=== PATIENT | female | born 1975 | race Caucasian/White ===

== ENCOUNTER → 2017-08-18 10:51 | Outpatient (CLI) | payer OTHER, SELFPAY ==
--- NOTE | 2017-08-18 10:55 | RAD_ITS ---
XR Abdomen 1 View INDICATION: Right flank pain COMPARISON: None TECHNIQUE: Frontal view of the abdomen FINDINGS: Air mixed with fecal material is seen throughout the colon and rectum. No significantly distended air-filled small bowel loops are seen to suggest obstruction. Osseous structures are grossly unremarkable. RAD/Abdomen Single View IMPRESSION: Nonobstructive bowel gas pattern. at 2209 Reported and signed by: Nannette Campuzano MD Electronically Signed: Nannette Campuzano MD at 22:07 EDT Tel , Service support ,
== END ==
PROVIDERS: Family Provider Family Medicine; PCP Family Medicine; Visit Provider Family Medicine
DX: R10.9 Unspecified abdominal pain (principal); M54.9 Dorsalgia, unspecified
CPT/HCPCS: 74018

== ENCOUNTER → 2019-01-20 | Outpatient (CLI) | payer OTHER, SELFPAY ==
[2017-04-13 12:34] VITALS: BMI 32.4
--- NOTE | 2019-01-20 10:45 | RAD_ITS ---
STUDY: X-RAY - LUMBAR SPINE REASON FOR EXAM: Female, 44 years old. Back pain TECHNIQUE: 4 view(s) of the lumbar spine were obtained. COMPARISON: None FINDINGS: Normal lumbar lordosis. There is no substantial scoliosis. There is a normal alignment of the vertebrae. Normal vertebral bodies and endplates. Minimal loss of disc space at L5-S1. There is no demonstrated fracture. There is no demonstrated spondylolysis of the pars interarticulares. The soft tissue structures are unremarkable. RAD/L/S Spine Min 4 Views IMPRESSION: Minor degenerative changes. Electronically Signed: Melvin Weaver MD ([place]) at 17:16 EDT , Service support ,
== END | disposition home or self-care (01) ==
LOC: RAD 10:36
PROVIDERS: Family Provider Family Medicine; PCP Family Medicine; Referring Provider Family Medicine; Visit Provider Family Medicine
DX: M54.5 Low back pain (principal); G89.29 Other chronic pain
CPT/HCPCS: 72100; 72110

== ENCOUNTER 2019-03-01 09:30 | Outpatient (RCR) | payer OTHER, SELFPAY ==
--- NOTE | 2019-02-01 09:33 | HP.PTEVAL_ITS ---
Patient's Visit Information BONITA DENTON is a 44 year old F referred to Physical Therapy by Kishan Mahoney DO with a diagnosis of LOW BACK PAIN. Date of Evaluation: 02/01/19 Physical Therapist: Tg Mercado PT, Cert MDT - Visit Plan Frequency: 2-3x /Week Duration: 4-6 Weeks Plan: AQUATIC THERAPY FOR PAIN RELEIF, POSTURE CORRECTION/STRENGTHENING, INSTRUCTION IN APPROPRIATE BODY MECHANICS AND ACTIVITY MODIFICATIONS. DLS STARTING WITH A NEUTRAL SPINE PROGRESSING ROM TOLERATED. NELIA LE ROM, STRETCHING AND STRENGTHENING. HEP INSTRUCTION. 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 SIT A LOT. Disability: NO. Present symptoms: CONSTANT LOWER RIGHT BACK, WRAPS AROUND HIP AND CUTS ACROSS THE FRONT OF RIGHT THIGH. RIGHT LEG NUMBNESS AND TINGLING AND ACROSS FOOT. LEFT BACK CRAMPING. NO PAIN, NUMBNESS OR TINGLING TRAVELING DOWN THE LEFT LE. Present since: ABOUT A MONTH AGO. Pain Scale: WORST 8/10, LEAST 3/10. Currently: 4/10. Commenced as a result of: NO APPARENT REASON OTHER THAN POOR POSTURE AND STARTED A NEW EX PROGRAM ABOUT 2 MONTHS AGO. Symptoms at onset: SPASMING AND PAIN IN RIGHT LOW BACK AND HIP. Worse: WALKING, RUNNING, PROLONGED SITTING, PROLONGED STANDING, CAR RIDES, LACK OF MVMT, COMPUTER WORK. Better: ICE OR HEAT, IBUPROFEN, MASSAGE, STRETCHING SOMETIMES HELPS, TENS UNIT SOMETIMES HELPS, BIOFREEZE, YOGA. Disturbed sleep: YES. Previous history/Previous treatment: PATIENT REPORTS A HISTORY OF LOW BACK PAIN STARTING ABOUT 20 YEARS AGO. HAS A TENS UNIT. H/O CHIROPRACTIC TREATMENTS FOR ABOUT A YEAR APPROX 10 YEARS AGO - HELPED BUT STOPPED DUE TO FINANCIAL ISSUES. HAS USED MUSCLE RELAXERS. MASSAGE ABOUT A YEAR AGO - HELPFUL. PATIENT DOES HAVE A HISTORY OF RIGHT LE SX'S BUT USUALLY GOES AWAY. NO PAULA'S. NO BACK SURGERY. NO PHYSICAL THERAPY. Coughing/sneezing/straining: BREATHING DOES. Gait: PATIENT REPORTS SHE SOMETIMES LIMPS ON THE RIGHT LE AND SHE AVOIDS WALKING DUE TO THE PAIN DURING FLARE-UPS. Difficulty initiating urinatin: NO. Accidents: CONCUSSION ABOUT 18 MONTHS AGO - RESOLVED. Unexplained weight loss: NO. Imaging: RECENT LUMBAR X-RAY - MINOR DISC DEGENERATION L5S1. PMH: FIBROMYALGIA, MILD DEPRESSION. OTHER: JHOAN'T WITH DR. TATUM PENDING. SURGICAL CONSULT FOR BREAST REDUCTION PENDING. - Objective Sitting/Standing Posture: POOR. Lordosis: NORMAL. Lateral shift: NO. Relevant shift: N/A. Active Correction of posture: NT. Other Observations: INDEP GAIT INTO PT WITH NO GROSS DEVIATIONS NOTED. Motor deficit: NELIA LE'S 5/5 WITH MMT'ING EXCEPT HIPS GRADED 4/5. Sensory deficit: NELIA LE LIGHT TOUCH SENSATION APPEARS INTACT AND SYMMETRICAL. ROM deficit: NELIA LE'S WFL OR EXCESSIVE. Reflexes: 2/3 NELIA LE'S. Dural Signs: POSITIVE LLE (UNINVOLVED SIDE). NEGATIVE RIGHT LE. Lumbar mvmt loss: flex - NIL - EXCESSIVE. ext - LILLIAN - INCREASES LBP. R SG - MOD. L SG - MOD. Core strength: POOR. Palpation: ACUTE TENDERNESS WITH PALPATION OF THE L45S1 REGION. OTHER: PRONE LYING PERIPHERALIZES SX'S TO THE FOOT. - Goals Goal 1:: DECREASE C/O LOW BACK AND RIGHT LE SX'S. Goal Time Frame: 4-6 Weeks Goal 2:: IMPROVE PERSONAL CARE, LIFTING, WALKING, SITTING, STANDING, SLEEP, SOCIAL LIFE, TRAVEL AND HOMEMAKING FUNCTION Goal Time Frame: 4-6 Weeks Goal 3:: INSTRUCT IN PROPHYLAXIS Goal Time Frame: 4-6 Weeks - Rehabilitation Potential Rehabilitation Potential: Fair - Anticipated Interventions Patient/Client Instruction: Educate patient on: Condition, Plan of Care, Risk Factors, Benefits of Fitness Program For the Purpose of:: To improve self management Therapeutic Exercise to Include: Strength training, Body mechanics, Postural training, In an aquatic setting, Dynamic Lumbar Stabilization For the Purpose of:: To decrease pain, To increase ROM, To improve nutrient delivery to tissue, To improve muscle performance and motor function, To increase tolerance to activity/condition/position, To improve ability of physical actions for home/community/work/leisure, To improve gait and locomotor functions Thank you for the opportunity to evaluate your patient. For Medicare and Medicare HMO plans, please review the plan of care and approve it. It will need to be FAXED BACK to us at [phone] for Medicare purposes. For Medicare only, by signing this I certify the plan of care. Please let me know if there are questions or concerns regarding this plan of care. Physician Signature: Date:
--- NOTE | 2019-03-01 10:16 | HP.PTDCSUM ---
HP - PT D/C Summary It has been my pleasure to treat BONITA DENTON under orders from Kishan Mahoney DO, for the diagnosis of LOW BACK PAIN for a total of 7 visit(s). Discharge Date: Please see the following information for a summary of their discharge status. - Subjective Subjective: PATIENT REPORTS SHE IS MUCH BETTER. - Pain Lumbar Spine Pain Intensity (Out of 10): 6 Thoracic Spine Pain Intensity (Out of 10): 0 - Overall Improvement % Improvement: 95 - Objective Objective/Function: ALL GOALS MET AND PATIENT IS INDEP WITH A HEP. LUMBAR ROM WFL ALL PLANES AND NO PAIN REPORTED WITH TESTING. NELIA LE ROM AND STRENGTH WFL. NEGATIVE NELIA LE DURAL SIGNS. PATIENT DEMONSTRATED AND COMMUNICATED A GOOD UNDERSTANDING OF ALL INSTRUCTIONS AFTER GIVEN TODAY. - Goals Goal 1:: DECREASE C/O LOW BACK AND RIGHT LE SX'S. Goal Progress: Goal Met Goal 2:: IMPROVE PERSONAL CARE, LIFTING, WALKING, SITTING, STANDING, SLEEP, SOCIAL LIFE, TRAVEL AND HOMEMAKING FUNCTION Goal Progress: Goal Met Goal 3:: INSTRUCT IN PROPHYLAXIS Goal Progress: Goal Met - Plan Plan: D/C. PATIENT AGREEABLE. - D/C Information If there are questions or concerns regarding this patient's physical therapy, please feel free to call me at [phone]. Thank you for the referral of this patient. Sincerely, Tg Mercado, PT, Cert MDT
== END 2019-03-01 19:00 | disposition home or self-care (01) ==
LOC: PT 09:30
PROVIDERS: Family Provider Family Medicine; PCP Family Medicine; Referring Provider Family Medicine; Visit Provider Family Medicine
DX: M54.16 Radiculopathy, lumbar region (principal); M54.5 Low back pain; G89.29 Other chronic pain
CPT/HCPCS: 97113; 97162; 97530

== ENCOUNTER → 2019-05-05 08:23 | Outpatient (CLI) | payer OTHER, SELFPAY ==
[2019-03-08 08:33] VITALS: BMI 32.9
--- NOTE | 2019-05-05 08:41 | BI_ITS ---
MAMMOGRAPHY - BILATERAL SCREENING REASON FOR EXAM: Female, 44 years old. Routine annual screening examination. PERTINENT HISTORY: Grandmother with breast cancer. TECHNIQUE: Digital bilateral breast shelli (3D mammographic acquisition) in the CC and MLO projections. 2-D mediolateral oblique (MLO) and craniocaudad (CC) views of both breasts were obtained. CAD: Full Field Digital Mammography with Computer Added Detection was performed. COMPARISON: Comparison is made with prior outside examination dated July 17, 2011. FINDINGS: Breast Composition: The breasts are extremely dense, which lowers the sensitivity of mammography. There are no dominant masses or suspicious calcifications. No other significant abnormalities are identified. There has been no significant change since the prior study. BI/SCREEN MAMM (CAD) W/SHELLI BILAT IMPRESSION: Stable bilateral screening mammogram. Yearly follow-up mammogram recommended. (A) ASSESSMENT CATEGORY: BIRADS Category 1: Negative. A letter regarding these results will be sent to the patient by the facility within 30 days. Approximately 10% of breast cancers are not detected by mammography. A normal mammogram should not delay biopsy of a clinically suspicious abnormality. [id number] Electronically Signed: Jonnathan Amaral, at 13:49 EST , Service support ,
== END ==
PROVIDERS: Family Provider Family Medicine; PCP Family Medicine; Referring Provider Nurse Practitioner Family; Visit Provider Nurse Practitioner Family
DX: Z12.31 Encounter for screening mammogram for malignant neoplasm of breast (principal); Z80.3 Family history of malignant neoplasm of breast
CPT/HCPCS: 77063; 77067

== ENCOUNTER 2022-05-15 09:48 | Outpatient (CLI) | payer OTHER, SELFPAY ==
[2022-05-15 12:26] LABS: Absolute Lymphocyte Count 1.39 X10^3/uL (0.83-4.51); Absolute Neutrophil Count 3.9 X10^3/uL (2.0-7.7); Basophil# 0.05 X10^3/uL; Basophil% 0.9 % (0-1); Eosinophil# 0.11 X10^3/uL; Eosinophils% 1.9 % (0-5); Hematocrit 43.4 % (37-47); Hemoglobin 14.4 g/dL (12.0-15.0); Lymphocyte # 1.39 X10^3/ul (0.83-4.51); Lymphocyte % 24.1 % (19-41); Mean Corp Hgb Conc 33.2 g/dL (32-36); Mean Corpuscular Volume 93.3 fL (81-99); Mean Platelet Vol. 9.6 fl (6.2-12.0); Monocyte# 0.29 X10^3/uL; NRBC Flagged by Analyzer 0 % (0-5); Neutrophil # 3.91 X10^3/uL (2.7-7.7); Neutrophil % 67.8 % (47-70); Platelet Count 239 K/mm3 (150-450); RBC Distribution Width CV 11.7 % (11.6-14.6); RBC Distribution Width SD 39.8 fl (35.1-43.9); Red Blood Count 4.65 M/mm3 (4.2-5.4); White Blood Count 5.8 K/mm3 (4.4-11.0)
[2022-05-15 12:29] LABS: Vitamin D,25 Hydroxy 27.7 ng/mL
[2022-05-15 12:34] LABS: ALB/GLOB Ratio 1.1 RATIO (0.9-2.4); AST(SGOT) 16 U/L (15-37); Alanine Aminotransfer ALT/SGPT 20 U/L (13-56); Albumin, Serum 3.5 g/dL (3.2-5.0); Alkaline Phosphatase 40 U/L (45-117); Anion Gap 6 (5-15); BUN 13 mg/dL (7-18); BUN/Creat Ratio 16.5 RATIO (10-20); CRP < 2.90 mg/L (0.0-3.0); Chloride 106 mmol/L (98-107); Cholesterol 220 mg/dL (200); Creatinine, Serum 0.79 mg/dL (0.55-1.02); EST Glomerular Filtration Rate 84 mL/min (>60); Est Glom Filt Rate - Afr Amer 101 mL/min (>60); Globulin 3.3 g/dL (2.2-4.2); Glucose 87 mg/dL (74-106); High Density Lipoprotein 64 mg/dL; Protein, Total 6.8 g/dL (6.4-8.2); Sodium Level 139 mmol/L (136-145); Thyroid Stim Hormone (TSH) 1.63 uIU/mL (0.358-3.74); Triglycerides 96 mg/dL; Very Low Density Lipoprotein 19 mg/dL (5-40)
[2022-05-15 12:37] LABS: Erythrocyte Sedimentation Rate 5 mm/hr (0-30)
[2022-05-18 17:07] LABS: ANTINUCLEAR ANTIBODIES DIRECT Positive (Negative); Anti-Centromere B Ab <0.2 AI (0.0-0.9); Anti-Chromatin <0.2 AI (0.0-0.9); Anti-Jo <0.2 AI (0.0-0.9); Anti-Scleroderma-70 AB <0.2 AI (0.0-0.9); RNP Ab 1.7 AI (0.0-0.9); SJOGREN'S Anti-SS-A test < 0.2 AI (0.0-0.9); SJOGREN'S Anti-SS-B test < 0.2 AI (0.0-0.9); Smith Ab <0.2 AI (0.0-0.9)
[2022-05-18 20:54] LABS: Anti-dsDNA Ab 1 IU/mL (0-9)
== END 2022-05-15 23:59 | disposition home or self-care (01) ==
PROVIDERS: PCP Family Medicine; Visit Provider Family Medicine
DX: Z00.00 Encounter for general adult medical examination without abnormal findings (principal); M79.10 Myalgia, unspecified site; R53.83 Other fatigue; E55.9 Vitamin D deficiency, unspecified
CPT/HCPCS: 36415; 80053; 80061; 82306; 84443; 85025; 85652; 86038; 86140; 86225; 86235

== ENCOUNTER 2022-10-01 08:23 | Day surgery (SDC) | payer OTHER, SELFPAY ==
[2022-10-01] VITALS (7 sets, daily range): BP systolic 92–128; BP diastolic 64–87; PULSE 68–94; RESP 14–18; TEMP 36.3–37.1; O2SAT 96–100; BMI 30.7
[2022-10-01] MEDS: Lactated Ringers 1,000 ML 15 ML IV (08:52)
[2022-10-01 08:53] LABS: Internal QC Validated? YES +Cl - CLEAR BKGD; Pregnancy, Urine Negative Negative
--- NOTE | 2022-10-01 09:08 | PCM.HP.STD ---
[facility] - General General Date of Admission: 10/01/22 Date of Service: 10/01/22 Chief Complaint: Screening colonoscopy [facility] Narrative BONITA DENTON, is a 47 F who presents today for screening colonoscopy. She has a past medical history of radiculopathy and somatic dysfunction of lumbar spine. She does not have any personal history of adenomatous polyps. She did have a colonoscopy. She denies any chest pain or shortness of breath. Overall she is in very good health. [facility] Medical History (Updated 09/30/22 @ 10:46 by Louann Mims) Alcohol use Allergies Anemia Anxiety Anxiety and depression Back problem Breast lump in female Depression Fibromyalgia Former smoker Gout History of steroid therapy Injury of head and neck Kidney stones Restless legs Wears glasses Home Medications [id number]-lthpm-lrtc-boron 600 mg-200 unit-40 mg-7.5 mg tablet 1 tab PO DAILY 03/08/19 [History Last Taken Unknown] fluticasone propionate 50 mcg/actuation nasal spray,suspension 1 spray intranasal DAILY 03/08/19 [History Last Taken Unknown] doxycycline hyclate 100 mg capsule 100 mg PO DAILY 07/21/22 [History Last Taken Unknown] ropinirole 0.5 mg tablet 1 mg PO QHS 07/21/22 [History Last Taken Unknown] spironolactone 100 mg tablet 100 mg PO QAM 07/21/22 [History Last Taken Unknown] venlafaxine 150 mg capsule,extended release 24 hr (Effexor XR) 150 mg PO DAILY 08/04/22 [History Last Taken Unknown] metronidazole 0.75 % topical cream 1 applic topical DAILY 09/30/22 [History Last Taken Unknown] prednisone 20 mg tablet 20 mg PO BID 09/30/22 [History Last Taken Unknown] Allergy/AdvReac Type Severity Reaction Status Date / Time No Known Allergies Allergy Verified 10/01/22 08:43 Family History Father Emotional depression Anxiety History of psychiatric care Mother Diabetes High cholesterol Sister History of psychiatric care Grandmother Breast cancer Grandmother Breast cancer Other Hypertension Thyroid disorder Surgical History (Updated 09/30/22 @ 10:46 by Louann Mims) History of oral surgery Hx of breast reduction, elective Social History Smoking Status: Former smoker alcohol intake: current alcohol intake frequency: holidays/special occasions only details: 2-4 DRINKS PER MONTH substance use type: does not use what type of physical activity do you participate in: running and yoga additional social history: DOES NOT USE ASPIRIN DOES USE IBUPROFEN NEEDED ROS Review of Systems ROS Unobtainable: other Constitutional Constitutional: Denies fatigue, fever(s), poor appetite, weight gain or weight loss ENT HEENT: Denies mouth lesions Cardiovascular Cardiovascular: Denies abdominal bloating, abdominal edema or abdominal pain Respiratory/Chest Respiratory/Chest: Denies change in mental status, change in phlegm color, chest congestion or chest tightness Gastrointestinal Gastrointestinal: Denies belching, bloating, change in bowel habits, change in stool character, chewing difficulty, coffee ground emesis, constipation, cramping, diarrhea, dyspepsia, dysphagia, early satiety, excessive flatus, fecal incontinence, heartburn, hematemesis, hematochezia, hemorrhoids, loose stools, melena, nausea, odynophagia, rectal bleeding, tenesmus, vomiting or weight changes Genitourinary Genitourinary: Denies abdominal discomfort, burning urination or itching Musculoskeletal Musculoskeletal: Reports as per HPI; Denies muscle weakness or myalgias Integumentary Integumentary: Denies jaundice Neurologic Neurologic: Denies lack of coordination or weakness Psychiatric Psychiatric: Denies confusion, depression, memory loss, mood swings, paranoia or suicidal ideation Endocrine Endocrinology: Denies systems reviewed and no addt'l complaints, except as documented Hematologic/Lymphatic Hematologic/Lymphatic: Denies anemia, easy bleeding, easy bruising or lymphadenopathy Allergic/Immunologic Allergic/Immunologic: Denies systems reviewed and no addt'l complaints, except as documented Vital Signs Vital Signs Vital Signs: 10/01/22 08:48 10/01/22 08:48 Temperature 98.3 F Temperature Source Temporal Pulse Rate 94 Respiratory Rate 16 Respiratory Pattern Normal Blood Pressure 122/82 H Blood Pressure Mean 95 Blood Pressure Source Monitor Blood Pressure Position Sitting Blood Pressure Location Left Arm Pulse Ox 99 Oxygen Delivery Method Room Air Weight Weight: 196 lb 3.382 oz Body Mass Index (BMI) 30.7 Physical Exam Const alert General Appearance: cooperative Orientation / Consciousness: oriented to person HEENT hearing grossly normal bilaterally Head and Scalp: normal to inspection Face and Sinus: face symmetric Nose: external nose normal Mouth: oral and palatal mucosa normal Eyes conjunctivae normal General Eye: normal appearance of both eyes Neck full ROM General: normal visual inspection Lymph Lymphatic: no lymphadenopathy noted Chest inspection of chest normal and palpation of chest normal Chest: symmetrical chest wall rise Resp normal respiratory effort Effort and Inspection: able to speak in complete sentences Cardio regular rate GI non-distended Percussion: normal to percussion Rectal Exam: deferred Neuro Speech: speech normal Gait (Neuro): normal gait Results Lab / Micro Data Labs: Laboratory Results - last 24 hr 10/01/22 08:35: Urine Test Negative Assessment & Plan Assessment/Plan (1) Encounter for screening for malignant neoplasm of colon: PLAN: She was explained alternatives, risk, benefits including not withstanding bleeding, infection, sepsis, perforation, need for emergent urgent . She have an ASA of 2.
--- NOTE | 2022-10-01 10:04 | OP.COLON_ITS ---
Patient Name: Chapis Jensen Procedure Date: 10/01/2022 9:39 AM Date of : 1975 Age: 47 Procedure: Colonoscopy Indications: Screening for colorectal malignant neoplasm Providers: Vinny Hillman DO Medicines: Monitored Anesthesia Care Patient Profile: This is a 47 year old female. Refer to note in patient chart for documentation of history and physical. Last Colonoscopy: none. The patient's first colonoscopy is today. Complications: No immediate complications. Procedure: Pre-Anesthesia Assessment: - Prior to the procedure, a History and Physical was performed, and patient medications and allergies were reviewed. The patient is competent. The risks and benefits of the procedure and the sedation options and risks were discussed with the patient. All questions were answered and informed consent was obtained. Patient identification and proposed procedure were verified by the physician in the pre-procedure area. Mental Status Examination: alert and oriented. Airway Examination: normal oropharyngeal airway and neck mobility. Respiratory Examination: clear to auscultation. CV Examination: normal. Prophylactic Antibiotics: The patient does not require prophylactic antibiotics. Prior Anticoagulants: The patient has taken no previous anticoagulant or antiplatelet agents. ASA Grade Assessment: II - A patient with mild systemic disease. After reviewing the risks and benefits, the patient was deemed in satisfactory condition to undergo the procedure. The anesthesia plan was to use monitored anesthesia care (MAC). Immediately prior to administration of medications, the patient was re-assessed for adequacy to receive sedatives. The heart rate, respiratory rate, oxygen saturations, blood pressure, adequacy of pulmonary ventilation, and response to care were monitored throughout the procedure. The physical status of the patient was re-assessed after the procedure. After I obtained informed consent, the scope was passed under direct vision. Throughout the procedure, the patient's blood pressure, pulse, and oxygen saturations were monitored continuously. The was introduced through the anus and advanced to the terminal ileum. The colonoscopy was performed without difficulty. The patient tolerated the procedure well. The quality of the bowel preparation was adequate. Moderate Sedation: Moderate (conscious) sedation was personally administered by an anesthesia professional. The following parameters were monitored: oxygen saturation, heart rate, blood pressure, respiratory rate, EKG, adequacy of pulmonary ventilation, and response to care. Scope In: 9:49:32 AM Scope Withdrawal Time 0 hours 5 minutes 58 seconds Scope Out: 9:59:31 AM Total Procedure Duration Time 0 hours 9 minutes 59 seconds Findings: The perianal and digital rectal examinations were normal. The colon (entire examined portion) appeared normal. Impression: - The entire examined colon is normal. - No specimens collected. Recommendation: - Discharge patient to home. - Resume previous diet. - Continue present medications. - Repeat colonoscopy in 10 years for screening purposes. Procedure Code(s): --- Professional --- G0121, Colorectal cancer screening; colonoscopy on individual not meeting criteria for high risk CPT copyright 2017 [employer]. All rights reserved. The codes documented in this report are preliminary and upon crm analyst review may be revised to meet current compliance requirements. Vinny Hillman DO 10/01/2022 10:04:05 AM This report has been signed electronically. Number of Addenda: 0 Note Initiated On: 10/01/2022 9:39 AM
--- NOTE | 2022-10-01 10:05 | OP.CCLET_ITS ---
10/01/2022 Kishan Mahoney [address] [place] [address] Re : Colonoscopy procedure for Chapis Jensen Dear Dr. Mahoney This procedure was performed on September. My impressions and recommendations are as follows: Impressions : - The entire examined colon is normal. - No specimens collected. Recommendations : - Discharge patient to home. - Resume previous diet. - Continue present medications. - Repeat colonoscopy in 10 years for screening purposes. My findings are described in the full procedure note, which is enclosed. If I can be of further assistance, please feel free to contact me at . Sincerely, Vinny Hillman, 10/01/2022 10:04:05 AM This report has been signed electronically.
== END 2022-10-01 11:00 | disposition home or self-care (01) ==
LOC: EN 08:24 → AC 08:26
PROVIDERS: Anesthesiology; PCP Family Medicine; Referring Provider Family Medicine; Visit Provider Internal Medicine Gastroenterology
PROC: 0DJD8ZZ Inspection of Lower Intestinal Tract, Via Natural or Artificial Opening Endoscopic (ICD-10-PCS; CPT 45378; principal; 2022-10-01 09:25)
DX: Z12.11 Encounter for screening for malignant neoplasm of colon (principal); G89.29 Other chronic pain; M54.6 Pain in thoracic spine; M54.17 Radiculopathy, lumbosacral region; M99.01 Segmental and somatic dysfunction of cervical region; M99.02 Segmental and somatic dysfunction of thoracic region; M99.03 Segmental and somatic dysfunction of lumbar region; F41.9 Anxiety disorder, unspecified; F32.A Depression, unspecified; M10.9 Gout, unspecified; Z79.899 Other long term (current) drug therapy; Z87.891 Personal history of nicotine dependence
CPT/HCPCS: 45378; 81025; J7120; J2405

== ENCOUNTER → 2025-03-29 | Outpatient (CLI) | payer OTHER, SELFPAY ==
--- NOTE | 2025-03-29 07:24 | BI_ITS ---
EXAM: SCRN MAMM (CAD)W/SHELLI BILAT DATE: 03/29/2025 CLINICAL HISTORY: F, Age 50 y/o , SCREENING Maternal grandmother with breast cancer. Prior bilateral breast reduction surgery. TECHNIQUE: Procedure Code: [id number] Modality: MG Procedure: SCRN MAMM (CAD)W/SHELLI BILAT COMPARISON: Prior exam(s) dated May 05, 2019.. FINDINGS: TISSUE DENSITY: The breasts are extremely dense, which lowers the sensitivity of mammography. Bilateral Breast Mammographic Findings: No significant masses, calcifications or other abnormalities are identified. Small benign-appearing axillary lymph nodes. No suspicious masses, areas of developing architectural distortion, or suspicious calcifications. There has been no significant interval change. BI/SCRN MAMM (CAD)W/SHELLI BILAT IMPRESSION: Stable bilateral screening mammogram. OVERALL FINAL ASSESSMENT BI-RADS 2: BENIGN RECOMMENDATION: Routine annual follow-up in 1 Year Additional Recommendation none A letter with findings and recommendations will be mailed to the patient. Reading Location: [place] [id number]
--- OUTSIDE RECORDS SUMMARY | 2025-03-29 07:29 | XMS RPT_ITS | CCD ---
Author Organization [facility] Team Providers Care Carpet Repairer Name Role Phone Zena Mahoney DO Primary Care Provider Dr. Zena Mahoney Primary Care Provider [phone] Faustina Beltre Attending Provider Unavailable Dr. Zena Mahoney Referring Provider Dr. Jaymie Portillo Attending Provider [phone] Friend, Dr. Casillas Attending Provider Friend, Dr. Casillas Other Provider ZENA MAHONEY Primary Care Unavailable Zena Mahoney DO Primary Care Provider Zena Mahoney Referring Unavailable Zena Mahoney Attending Unavailable Zena Mahoney Primary Care Unavailable Medications Current Medications Medication Drug Class(es) Dates Sig (Normalized) Sig (Original) amoxicillin 875 mg / clavulanate 125 mg oral tablet (2 sources) Penicillin-class Antibacterial Start: 01-31-2024 End: 02-07-2024 take 1 tablet by mouth twice daily amoxicillin-clavulan ate potassium (AUGMENTIN) 875-125 mg per tablet Indications: Sinobronchitis Take 1 tablet by mouth two times a day for 7 days. 14 tablet 01/31/2024 02/07/2024 Active Start: 11-04-2021 End: 11-11-2021 take 1 tablet by mouth twice daily amoxicillin-clavulanic acid (AUGMENTIN) 875-125 mg per tablet Take 1 tablet by mouth twice daily for 7 days. 14 tablet 0 11/04/2021 11/11/2021 Active Comment on above: Take 1 tablet by luis twice daily for 7 days. bisacodyl 10 mg rectal suppository (2 sources) Stimulant Laxative Start: 0 bisacodyl (DULCOLAX, BISACODYL,) 10 mg supp 1 Suppository by RECTAL route once daily as needed. 5 Suppository 02/27/2020 Active Comment on above: 1 Suppository by REC OSCAR route once daily as needed. watalld-H5-mah-Zn-coppersmith apprentice qm-nycv-zffsa 600 mg-200 unit-40 mg-7.5 mg tablet (3 sources) Start: 9 take 1 tablet by mouth once daily fxildix-M1-yhv-Zn-co sla-havg-tufxp 600 mg-200 unit-40 mg-7.5 mg tablet Active 1 TABLET PO DAILY March 08, 2019 1:00am Start: 03-08-2019 wywaopr-H4-qtn -Rm-hpyrc-ypfj-boron 600 mg-200 unit-40 mg-7.5 mg tablet Active TABLET PO March 08, 2019 12:00am Start: 03-08-2019 sjzkbix-U8-flq -Ap-bjdkw-qqej-boron 600 mg-200 unit-40 mg-7.5 mg tablet Active TABLET PO March 08, 2019 1:00am doxycycline hyclate 100 mg oral capsule (3 sources) Tetracycline-class Drug Start: 07-21-2022 take 100 mg by mouth once daily Doxycycline Hyclate Active 100 MG PO DAILY July 21, 2022 12:00am Start: 01-04-2020 [facility] Active fluticasone propionate 0.05 mg/actuat metered dose nasal spray (5 sources) Corticosteroid Start: 03-08-2019 Fluticasone Pr opionate Active 1 SPRAY INTRANASAL DAILY March 08, 2019 1:00am Start: 03-01-2019 take 2 spray(s) by m outh once daily fluticasone (FLONASE) 50 mcg/actuation nasal spray Indications: Bacterial sinusitis Use 2 Sprays in each nostril once daily. Rinse mouth after use. 1 Bottle 03/01/2019 Active Comment on above: Use 2 Sprays in each nostril once daily. Rinse mouth after use. ibuprofen 200 mg oral capsule (2 sources) Nonsteroidal Anti-inflammatory Drug Ibuprofen 200 mg cap Take 4 capsules by mouth. Active Comment on above: Take 4 capsules by m outh. loratadine 10 mg oral tablet (4 sources) Start: 2018 take 1 tablet by mouth once daily loratadine (CLARITIN) 10 mg tablet Indications: Bacterial sinusitis Take 1 tablet by mouth once daily. 30 tablet 03/01/2019 Active Comment on above: Take 1 tablet by luis th once daily. 1 ml medroxyPROGESTERone acetate 150 mg/ml prefilled syringe (3 sources) Progestin Start: 2016 medroxyPROGESTERone (DEPO-PROVERA) 150 mg/mL 150 mg. 04/13/2017 Active Start: 04-13-2017 inject 150 mg by int ramuscular injection every three months Medroxyprogesterone Active 150 MG IM .[id number] April 13, 2017 12:00am metroNIDAZOLE 7.5 mg/ml topical cream (1 source) Nitroimidazole Antimicrobial Start: 09-30-2022 Metronidazole Active 1 APPLIC TOPICAL DAILY September 30, 2022 12:00am Multivitamin preparation (2 sources) Start: 01-15-2017 Multivitamin A ctive 1 EACH PO DAILY January 14, 2017 11:00pm Start: 01-15-2017 Multivitamin A ctive 1 EACH PO DAILY January 15, 2017 12:00am multivitamin tablet (2 sources) take 1 tablet by luis th once daily multivitamin tablet Take 1 tablet by mouth once daily. Active take 1 tablet by mouth once olman y multivitamin tablet Take 1 tablet by mouth once daily. 0 Active Comment on above: Take 1 tablet by luis th once daily. ondansetron 4 mg disintegrating oral tablet (2 sources) Serotonin-3 Receptor Antagonist Start: 04-13-20 take 4 mg by mouth every eight hours as needed Ondansetron Active 4 MG PO EVERY 8 HOURS NEEDED April 13, 2017 2:38pm predniSONE 20 mg oral tablet (2 sources) Start: 01-31-20 End: 02-05-20 take 2 tablets by mouth once daily predniSONE (DELTASONE) 20 mg tablet Indications: Sinobronchitis Take 2 tablets by mouth once daily for 5 days. 10 tablet 01/31/2024 02/05/2024 Active Start: 09-30-2022 take 20 mg by mouth twice olman y Prednisone Active 20 MG PO TWICE A DAY September 30, 2022 12:00am rOPINIRole 0.5 mg oral tablet (1 source) Nonergot Dopamine Agonist Start: 07-21-2022 take 1 mg by mouth at bedtime Ropinirole Active 1 MG PO AT BEDTIME July 21, 2022 12:00am administer 1-3 hours before bedtime spironolactone 100 mg oral tablet (2 sources) Aldosterone Antagonist Start: 01-05-2024 take 1 tablet by mouth once daily spironolactone (ALDACTONE) 100 mg tablet Take 1 tablet by mouth once daily (at the same time each day) with a full glass of water. 01/05/2024 Active Start: 07-21-2022 take 100 mg by mouth once daily in the morning Spironolactone Active 100 MG PO EVERY MORNING July 21, 2022 12:00am TESTOSTERONE AND ESTRADIOL C YP (DEPO-TESTADIOL INTRAMUSC.) (2 sources) TESTOSTERONE AND ESTRADIOL CYP (DEPO-TESTADIOL INTRAMUSC.) Inject intramuscularly. Active TESTOSTERONE AND ESTRADIOL CYP (DEPO-TESTADIOL INTRAMUSC.) Inject intramuscularly. 0 Active Comment on above: Inject intramuscular ly. 24 hr venlafaxine 150 mg extended release oral capsule (6 sources) Serotonin and Norepinephrine Reuptake Inhibitor Start: 08-05-19 take 1 capsule by mouth once daily Venlafaxine (Effexor Xr) 150 mg capsule,extended release 24hr Active 150 MG PO DAILY August 04, 2022 12:00am Start: 01-15-2017 End: 08-04-2022 take 75 mg by mouth once daily Venlafaxine Discontinue d 75 MG PO DAILY January 15, 2017 12:00am August 04, 2022 8:50am VENLAFAXINE HCL (EFFEXOR XR ORAL) Take by mouth. Active VENLAFAXINE HCL (EFFEXOR XR ORAL) Take by mouth. 0 Active Comment on above: Take by mouth. Problems Active Problems Problem Classification Problem Date Documented Da te Episodic/Chronic Anxiety disorders (2 sources) Mixed anxiety and depressive disorder; Translations: [Anxiety disorder, unspecified] Onset: 02-20-2020 02-20-2020 Chronic Nonmalignant breast conditions (3 sources) Large breast; Translations: [Hypertrophy of breast] 03-08-2019 Episodic Other bone disease and musculoskeletal deformities (9 sources) Segmental and somatic dysfunction; Translations: [Segmental and somatic dysfunction of cervical region] 02-09-2019 Episodic Other bone disease and musculoskeletal deformities (2 sources) Segmental and somatic dysfunction of cervical region; Translations: [Nonallopathic lesions, cervical region] 08-04-2022 Episodic Other bone disease and musculoskeletal deformities (2 sources) Segmental and somatic dysfunction of lumbar region; Translations: [Nonallopathic lesions, lumbar region] 08-04-2022 Episodic Other bone disease and musculoskeletal deformities (2 sources) Segmental and somatic dysfunction of thoracic region; Translations: [Nonallopathic lesions, thoracic region] 08-04-2022 Episodic Other inflammatory condition of skin (3 sources) Intertrigo; Translations: [Erythema intertrigo] 03-08-2019 Episodic Other non-traumatic joint disorders (3 sources) Shoulder pain; Translations: [Pain in unspecified shoulder] 03-08-2019 Episodic Other nutritional; endocrine; and metabolic disorders (1 source) Obesity; Translations: [Other obesity due to excess calories] Onset: 02-20-2020 02-20-2020 Chronic Other nutritional; endocrine; and metabolic disorders (1 source) Obesity caused by energy imbalance; Translations: [Class 1 obesity due to excess calories without serious comorbidity with body mass index (BMI) of 31.0 to 31.9 in adult] Onset: 02-20-2020 02-20-2020 Chronic Other screening for suspected conditions (not mental disorders or infectious disease) (3 sources) Patient encounter status; Translations: [Encounter for screening for malignant neoplasm of colon] Onset: 02-27-2025 07-21-2022 Episodic Other upper respiratory infections (2 sources) Bacterial sinusitis; Translations: [Chronic sinusitis, unspecified] Chronic Other upper respiratory infections (1 source) Sore throat symptom; Translations: [Acute pharyngitis, unspecified] 01-31-2024 Episodic Residual codes; unclassified (3 sources) Family history of breast cancer; Translations: [Family history of malignant neoplasm of breast] 03-08-2019 Episodic Spondylosis; intervertebral disc disorders; other back problems (11 sources) Chronic thoracic back pain; Translations: [Pain in thoracic spine] 03-08-2019 Episodic Past or Other Problems Problem Classification Problem Date Documented Date Episodic/Chronic Allergic reactions (2 sources) Environmental allergy; Translations: [Other allergy status, other than to drugs and biological substances] Onset: 02-20-2020 02-20-2020 Episodic Results Test Name Value Interpretation Reference Range Facility [facility] 01-31-2024 CNOV Office Visit (UCWSTR) ---- BONITA JENSEN ([id number]) 1975 F Date Time Provider Department 01/31/24 4:00 PM ANTHONY BELTRE [facility] During your visit today, we recorded the following information about you: Temperature Pulse Respiration Blood pressure 97.8 degrees 92/minute 16/minute 144/88 Weight 95 kg Anthony Beltre APRN.MANAGER LABORATORY 01/31/2024 4:23 PM Signed Subjective HPI HPI Bonita Jensen is a 49 year old female who presents today for CC of st. This started st, sinus pressure, ear pain. Has tried 3 days ago. Symptoms are worsened by otc medication for relief. Risk factors sick exposures at home. Nonsmoker. .Patient presents with: Head Congestion: right side ear, tonsil and throat pain x 3 days No past medical history on file. No past surgical history on file. ALLERGIES Patient has no known allergies. MEDICATIONS medroxyPROGESTERone (DEPO-PROVERA) 150 mg/mL 150 mg. spironolactone (ALDACTONE) 100 mg tablet Take 1 tablet by mouth once daily (at the same time each day) with a full glass of water. bisacodyl (DULCOLAX, BISACODYL,) 10 mg supp 1 Suppository by RECTAL route once daily as needed. Ibuprofen 200 mg cap Take 4 capsules by mouth. fluticasone (FLONASE) 50 mcg/actuation nasal spray Use 2 Sprays in each nostril once daily. Rinse mouth after use. VENLAFAXINE HCL (EFFEXOR XR ORAL) Take by mouth. multivitamin tablet Take 1 tablet by mouth once daily. doxycycline hyclate 50 mg TbEC (Patient not taking: Reported on 01/31/2024) loratadine (CLARITIN) 10 mg tablet Take 1 tablet by mouth once daily. (Patient not taking: Reported on 01/31/2024) TESTOSTERONE AND ESTRADIOL CYP (DEPO-TESTADIOL INTRAMUSC.) Inject intramuscularly. (Patient not taking: Reported on 11/04/2021 ) FAMILY HISTORY Problem Relation Age of Onset Psychiatry Father Arthritis Father Diabetes Mother Arrythmias Mother Social History Tobacco Use Smoking status: Never Smokeless tobacco: Never Substance Use Topics Alcohol use: Yes Alcohol/week: 2.0 standard drinks of alcohol Types: 2 Glasses of Wine (5oz) per week Drug use: Never Review of Systems Constitutional: Negative for fever. HENT: Positive for congestion, ear pain and sore throat. Negative for nosebleeds. Respiratory: Positive for cough. Negative for shortness of breath and wheezing. Musculoskeletal: Negative for neck pain. Skin: Negative for itching and rash. Objective Blood pressure 144/88, pulse 92, temperature 36.6 ?C (97.8 ?F), resp. rate 16, weight 95 kg (209 lb 7 oz), SpO2 99%. Physical Exam Constitutional: General: She is not in acute distress. Appearance: She is not toxic-appearing or diaphoretic. HENT: Head: Normocephalic and atraumatic. Right Ear: Hearing, tympanic membrane, ear canal and external ear normal. Left Ear: Hearing, tympanic membrane, ear canal and external ear normal. Nose: Nose normal. Mouth/Throat: Lips: [place]. Mouth: Mucous membranes are moist. Pharynx: Uvula midline. Posterior oropharyngeal erythema present. No pharyngeal swelling, oropharyngeal exudate or uvula swelling. Eyes: General: Lids are normal. No scleral icterus. Right eye: No discharge. Left eye: No discharge. Conjunctiva/sclera: Conjunctivae normal. Pupils: Pupils are equal, round, and reactive to light. Neck: Trachea: Trachea normal. Cardiovascular: Rate and Rhythm: Normal rate and regular rhythm. Heart sounds: Normal heart sounds. Pulmonary: Effort: Pulmonary effort is normal. Breath sounds: Normal breath sounds. Musculoskeletal: Cervical back: Normal range of motion and neck supple. Lymphadenopathy: Cervical: No cervical adenopathy. Right cervical: No superficial cervical adenopathy. Left cervical: No superficial cervical adenopathy. Skin: Findings: No rash. Neurological: Mental Status: She is alert and oriented to person, place, and time. ASSESSMENT/PLAN: 1. Sinobronchitis - ICD9: 473.9, 490, ICD10: J32.9, J40 (primary diagnosis) Start prednisone today, hold atb. If s/s persist or worsen fill and take atb - Supportive care with plenty of fluids, rest, and analgesia prn. - Follow up in 3-5 days if symptoms persist or worsen. - AMOXICILLIN 875 MG-POTASSIUM CLAVULANATE 125 MG TABLET - PREDNISONE 20 MG TABLET 2. Sore throat - ICD9: 462, ICD10: J02.9 Negative, viral - STREP A MOLECULAR (POC) Anthony Beltre APRN.MANAGER LABORATORY Allergies As of Date: 01/31/2024 (No Known Allergies) Date Reviewed: 01/31/2024 Reviewed by: Lashay Barney MA - Fully Assessed Reason for Visit: Head Congestion [234] Cmt: right side ear, tonsil and throat pain x 3 days Primary Visit Diagnosis:Sinobronc hitis [J32.9, J40] Other Visit Diagnosis:Sore throat [J02.9] Order(s):STREP A MOLECULAR (POC) [0025212] Order #: [id number]. #:[id number] amoxicillin-clavula mireille potassium (AUGMENTIN) 875-125 mg per tabletT (more content not included)... Normal [facility] STREP A MOLECULAR (POC)on Procedural Control Valid [facility] Strep A (POCT) Negative Negative [facility] - Chemistry and C hemistry - challengeOrdered By: Dr. Elizabeth on 10-01-2022 HCG ( test) Ql (U) Negative [facility] Comment on above: Very dilute urine sp ecimens, as indicated by a low specificgravity, may not contain technical sales representatives levels of hCG. If is still suspected, a first morning urinespecimen should be collected 48 hours later and tested. Absolute lymphocyte countOrd ered By: Dr. Mahoney on 05-15-2022 Lymphocytes Auto (Unsp spec) [#/Vol] 1.39 10*3/uL 0.83-4.51 [facility] Basophil percentageOrdered B y: Dr. Mahoney on 05-15-2022 Basophil percentage < 0.2 AI 0.0-0.9 [facility] Basophils/100 WBC (Bld) 0.9 % 0-1 [facility] Bilirubin [Mass/Vol] 0.50 mg/dL 0.20-1.00 [facility] Comment on above: For patients on eltr ombopag therapy, use of Dimension [place] TBIL is not recommended. Chloride [Moles/Vol] 106 mmol/L 98-107 [facility] Cholesterol [Mass/Vol] 220 mg/dL <200 [facility] Comment on above: <200 mg/dL Desirable 200-240 mg/dL Borderline >240 mg/dL High Risk Eosinophils/100 WBC (Bld) 1.9 % 0-5 [facility] Glucose [Mass/Vol] 87 mg/dL 74-106 [facility] Neutrophils (Bld) [#/Vol] 3.9 10*3/uL 2.0-7.7 [facility] Neutrophils/100 WBC (Bld) 67.8 % 47-70 [facility] Potassium [Moles/Vol] 4.0 mmol/L 3.5-5.1 [facility] Protein [Mass/Vol] 6.8 g/dL 6.4-8.2 [facility] Sodium [Moles/Vol] 139 mmol/L 136-145 [facility] Triglyceride [Mass/Vol] 96 mg/dL <199 [facility] Comment on above: The drugs N-Acetylcy steine and Metamizole may falsely depress this assay.Serum Triglycerides Reference Interval Normal <150 mg/dL Borderline high 150 - 199 mg/dL High 200 - 499 mg/dL Very High > or = 500 mg/dL WBC (Bld) [#/Vol] 5.8 10*3/uL 4.4-11.0 [facility] Blood erythrocytes count (nu mber/volume)Ordered By: Dr. Mahoney on 05-15-2022 RBC (Bld) [#/Vol] 4.65 10*6/uL 4.2-5.4 [facility] Blood hemoglobin measurement (mass/volume)Ordered By: Dr. Mahoney on 05-15-2022 Hemoglobin (Bld) [Mass/Vol] 14.4 g/dL 12.0-15.0 [facility] Blood lymphocytes/100 leukoc ytesOrdered By: Dr. Mahoney on 05-15-2022 Lymphocytes/100 WBC (Bld) 24.1 % 19-41 [facility] Blood monocytes/100 leukocyt esOrdered By: Dr. Mahoney on 05-15-2022 Monocytes/100 WBC (Bld) 5.0 % 0-10 [facility] Blood platelet mean volumeOr dered By: Dr. Mahoney on 05-15-2022 Platelet mean volume (Bld) [Entitic vol] 9.6 fL 6.2-12.0 [facility] Determination of erythrocyte mean corpuscular volume (MCV)Ordered By: Dr. Mahoney on 05-15-2022 MCV (RBC) [Entitic vol] 93.3 fL 81-99 [facility] Erythrocyte sedimentation ra teOrdered By: Dr. Mahoney on 05-15-2022 ESR (Bld) [Velocity] 5 mm/h 0-30 [facility] Hematocrit Auto (Bld) [Volum e fraction]Ordered By: Dr. Mahoney on 05-15-2022 Hematocrit (Bld) [Volume fraction] 43.4 % 37-47 [facility] - Chemistry and C hemistry - challengeOrdered By: Dr. Mahoney on 05-15-2022 ALP [Catalytic activity/Vol] 40 U/L 45-117 [facility] ALT [Catalytic activity/Vol] 20 U/L 13-56 [facility] CO2 [Moles/Vol] 27.0 mmol/L 21.0-32.0 [facility] Globulin (S) [Mass/Vol] 3.3 g/dL 2.2-4.2 [facility] Urea nitrogen/Creatinine [Mass ratio] 16.5 mg/mg 10-20 [facility] - Hematology and Cell countsOrdered By: Dr. Mahoney on 05-15-2022 Erythrocyte distribution width (RBC) [Entitic vol] 39.8 fL 35.1-43.9 [facility] Erythrocyte distribution width (RBC) [Ratio] 11.7 % 11.6-14.6 [facility] Immature granulocytes/100 WBC (Bld) 0.300 % 0.0-0.9 [facility] Comment on above: IG% - Immature Granu locytes (promyelocytes, myelocytes and metamyelocytes) > 1% indicates that a LEFT SHIFT is Present. MCH (RBC) [Entitic mass] 31.0 pg 27.0-32.0 [facility] Nucleated RBC/100 WBC (Bld) [Ratio] 0 % 0-5 [facility] MCHC Auto (RBC) [Mass/Vol]Or dered By: Dr. Mahoney on 05-15-2022 MCHC (RBC) [Mass/Vol] 33.2 g/dL 32-36 [facility] No Panel InformationOrdered By: Dr. Mahoney on 05-15-2022 Anti-Nuclear Antibody Screen Positive Negative [facility] Centromere B Antibody <0.2 AI 0.0-0.9 [facility] Estimated GFR (MDRD) Amer 101 mL/min >60 [facility] Comment on above: GFR Calc Estimated GFR (MDRD) Non-Af Amer 84 mL/min >60 [facility] Comment on above: Non- GFR Calc CONTROL CLERK AUDITING Antibody 1.7 AI 0.0-0.9 [facility] Thyroid Stimulating Hormone (TSH) 1.63 uIU/mL 0.358-3.74 [facility] Vitamin D 25-Hydroxy 27.7 ng/mL [facility] Comment on above: Vitamin D 25(OH) Sta tus Range Deficiency <20 ng/mL (50nmol/L) Insufficiency 20 - 30 ng/mL (50 - 75 nmol/L) Sufficiency 30 - 100 ng/mL (75 - 250 nmol/L) Toxicity >100 ng/mL (>250 nmol/L) Platelets bldOrdered By: Dr. Mahoney on 05-15-2022 Platelets (Bld) [#/Vol] 239 10*3/uL 150-450 [facility] Serum DNA double strand anti body assay (units/volume)Ordered By: Dr. Mahoney on 05-15-2022 DNA double strand Ab Qn (S) 1 [IU]/mL 0-9 [facility] Comment on above: Negative <5 Equivoca l 5 - 9 Positive >9 Serum Starr-1 antibody assay (u nits/volume)Ordered By: Dr. Mahoney on 05-15-2022 Starr-1 extractable nuclear Ab Qn (S) <0.2 AI 0.0-0.9 [facility] Serum Scl-70 extractable nuc lear antibody assay (units/volume)Ordered By: Dr. Mahoney on 05-15-2022 SCL-70 extractable nuclear Ab Qn (S) <0.2 AI 0.0-0.9 [facility] Serum Nathan extractable nucl ear antibody detectionOrdered By: Dr. Mahoney on 05-15-2022 Nathan extractable nuclear Ab Ql (S) <0.2 AI 0.0-0.9 [facility] Serum or plasma C reactive p rotein measurement (mass/volume)Ordered By: Dr. Mahoney on 05-15-2022 CRP [Mass/Vol] mg/L 0.0-3.0 [facility] Comment on above: C-Reactive Protein ( CRP) provides useful information for thediagnosis, therapy and monitoring of inflammatory processesand associated diseases. For the evaluation of Relative Riskfor Cardiovascular Disease, a High Sensitivity CRP (HSCRP)should be ordered. Serum or plasma albumin dieudonne urement (mass/volume)Ordered By: Dr. Mahoney on 05-15-2022 Albumin [Mass/Vol] 3.5 g/dL 3.2-5.0 [facility] Serum or plasma albumin/glob ulin mass ratioOrdered By: Dr. Mahoney on 05-15-2022 Albumin/Globulin [Mass ratio] 1.1 {ratio} 0.9-2.4 [facility] Serum or plasma calcium dieudonne urement (mass/volume)Ordered By: Dr. Mahoney on 05-15-2022 Calcium [Mass/Vol] 9.0 mg/dL 8.5-10.1 [facility] Serum or plasma cholesterol in HDL measurement (mass/volume)Ordered By: Dr. Mahoney on 05-15-2022 Cholesterol in HDL [Mass/Vol] 64 mg/dL >40 [facility] Comment on above: The drugs N-Acetylcy steine and Metamizole may falsely depress this assay. Reference Range HDL <40 mg/dL Low HDL Cholesterol HDL >or= 60 mg/dL High HDL Cholesterol Serum or plasma cholesterol in VLDL measurement (mass/volume)Ordered By: Dr. Mahoney on 05-15-2022 Cholesterol in VLDL [Mass/Vol] 19 mg/dL 5-40 [facility] Serum or plasma creatinine m easurement (mass/volume)Ordered By: Dr. Mahoney on 05-15-2022 Creatinine [Mass/Vol] 0.79 mg/dL 0.55-1.02 [facility] Comment on above: The validity of the calculated GFR & GFRAA in patients over 70 years has not been determined. Clinical correlation is essential. Serum or plasma low density lipoprotein (LDL) cholesterol measurement (mass/volume)Ordered By: Dr. Mahoney on 05-15-2022 Cholesterol in LDL [Mass/Vol] 137 mg/dL 0-130 [facility] Serum or plasma urea nitroge n measurement (mass/volume)Ordered By: Dr. Mahoney on 05-15-2022 Urea nitrogen [Mass/Vol] 13 mg/dL 7-18 [facility] Thin prep Papanicolaou smear with manual screeningOrdered By: Dr. Mahoney on 05-15-2022 Thin prep Papanicolaou smear with manual screening 16 U/L 15-37 [facility] Thin prep Papanicolaou smear with manual screening 6 5-15 [facility] Vital Signs Date Time Vital Sign Value Performing Clinician Facility 01-31-2024 15:57-0400 Body mass index (BMI) [Ratio] 32.8 kg/m2 Anthony Beltre APRN.CNP Work Phone: [facility] 01-31-2024 15:57-0400 Body temperature 97.81 [degF] Anthony Beltre APRN.MANAGER LABORATORY Work Phone: [facility] 01-31-2024 15:57-0400 Body weight 95 kg Anthony Beltre APRN.MANAGER LABORATORY Work Phone: [facility] 01-31-2024 15:57-0400 Diastolic blood pressure 88 mm[Hg] Anthony Beltre APRN.MANAGER LABORATORY Work Phone: [facility] 01-31-2024 15:57-0400 Heart rate 92 /min Anthony Beltre APRN.MANAGER LABORATORY Work Phone: [facility] 01-31-2024 15:57-0400 Respiratory rate 16 /min Anthony Beltre APRN.MANAGER LABORATORY Work Phone: [facility] 01-31-2024 15:57-0400 SaO2% (BldA) [Mass fraction] 99 % Anthony King LESA.MANAGER LABORATORY Work Phone: [facility] 01-31-2024 15:57-0400 Systolic blood pressure 144 mm[Hg] Anthony Beltre APRN.MANAGER LABORATORY Work Phone: [facility] 10-01-2022 10:33-0400 Body temperature 98.8 [degF] Dr. Zena Mahoney Work Phone: [facility] 10-01-2022 10:33-0400 Diastolic blood pressure 87 mm[Hg] Dr. Zena Mahoney Work Phone: [facility] 10-01-2022 10:33-0400 Heart rate 68 /min Dr. Zena Mahoney Work Phone: [facility] 10-01-2022 10:33-0400 Respiratory rate 16 /min Dr. Zena Mahoney Work Phone: [facility] 10-01-2022 10:33-0400 SaO2% (BldA) [Mass fraction] 96 % Dr. Zena Mahoney Work Phone: [facility] 10-01-2022 10:33-0400 Systolic blood pressure 128 mm[Hg] Dr. Zena Mahoney Work Phone: [facility] 10-01-2022 08:48-0400 Body height [address] Zena Mahoney Work Phone: [facility] 10-01-2022 08:48-0400 Body mass index (BMI) [Ratio] 30.7 kg/m2 Dr. Zena Mahoney Work Phone: [facility] 10-01-2022 08:48-0400 Body weight [address] Zena Mahoney Work Phone: [facility] 08-04-2022 08:47-0400 Body mass index (BMI) [Ratio] 32.1 kg/m2 Dr. Zena Mahoney Work Phone: [facility] 08-04-2022 08:47-0400 Body weight 92.[address] Zena Mahoney Work Phone: [facility] 08-04-2022 08:47-0400 Diastolic blood pressure 80 mm[Hg] Dr. Zena Mahoney Work Phone: [facility] 08-04-2022 08:47-0400 Systolic blood pressure 140 mm[Hg] Dr. Zena Mahoney Work Phone: [facility] 07-21-2022 10:21-0400 Body mass index (BMI) [Ratio] 31.3 kg/m2 Dr. Zena Mahoney Work Phone: [facility] 07-21-2022 10:21-0400 Body weight 90.[address] Zena Mahoney Work Phone: [facility] 11-04-2021 16:12-0400 Body temperature 98.8 [degF] José Lackey PARTITION MAKING MACHINE OPERATOR.MANAGER LABORATORY Work Phone: [facility] 11-04-2021 16:12-0400 Body weight 94.35 kg José Lackey PARTITION MAKING MACHINE OPERATOR.MANAGER LABORATORY Work Phone: [facility] 11-04-2021 16:12-0400 Diastolic blood pressure 82 mm[Hg] José Lackey PARTITION MAKING MACHINE OPERATOR.MANAGER LABORATORY Work Phone: [facility] 11-04-2021 16:12-0400 Heart rate 90 /min José Lackey PARTITION MAKING MACHINE OPERATOR.MANAGER LABORATORY Work Phone: [facility] 11-04-2021 16:12-0400 Respiratory rate 16 /min José Lackey PARTITION MAKING MACHINE OPERATOR.MANAGER LABORATORY Work Phone: [facility] 11-04-2021 16:12-0400 SaO2% (BldA) [Mass fraction] 96 % José Lackey PARTITION MAKING MACHINE OPERATOR.MANAGER LABORATORY Work Phone: [facility] 11-04-2021 16:12-0400 Systolic blood pressure 128 mm[Hg] José Lackey LESA.MANAGER LABORATORY Work Phone: [facility] Encounters Encounter Date Encounter Type Care Provider Facility Start: 03-19-2025 ambulatory Zena Mahoney Facility: [facility] Start: 01-31-2024 End: 01-31-2024 ambulatory ZENA MAHONEY Facility:[facility] Start: 01-31-2024 End: 01-31-2024 Patient encounter procedure Anthony Beltre LESA.MANAGER LABORATORY Work Phone: [facility] Comment on above: Sinobronchitis (Prim corinne Dx); Sore throat Start: 10-01-2022 Non-patient / Non-visit Dr. Michelle Mahoney Work Phone: [facility] Start: 10-01-2022 End: 10-01-2022 Admission to same day surgery center Dr. Zena Mahoney Work Phone: [facility] Start: 10-01-2022 End: 10-01-[address] Zena Mahoney Work Phone: [facility] Work Phone: Start: 09-01-2022 End: 09-01-[address] Zena Mahoney Work Phone: [facility] Start: 08-04-2022 End: 08-04-[address] Zena Mahoney Work Phone: [facility] Start: 07-21-2022 Non-patient / Non-visit Dr. Michelle Mahoney Work Phone: [facility] Start: 05-15-2022 End: 05-15-2022 ambulatory [facility] Work Phone: Start: 05-15-2022 End: 05-15-2022 Patient encounter procedure [facility] Start: 11-04-2021 End: 11-04-2021 Patient encounter procedure José Lackey PARTITION MAKING MACHINE OPERATOR.MANAGER LABORATORY Work Phone: [facility] Comment on above: Bacterial sinusitis (Primary Dx) Procedures Date Procedure Procedure Detail Performing Clinician Start: 01-31-2024 STREP A MOLECULAR (POC) Sofia Gómez APRN.MANAGER LABORATORY Work Phone: Start: 10-01-[address] Zena lozada Work Phone: Plan of Treatment Date Care Activity Detail Author Start: 05-15-2032 Urine microalbumin profile DTaP,Tdap,Td Vaccine (3 - Td or Tdap) [facility] Start: 01-15-2027 Urine microalbumin profile DTAP,TDAP,TD (2 - Td or Tdap) [facility] Start: 12-19-2023 Covid-19 Vaccine () Covid-19 Vaccine () [facility] Start: 12-19-2023 Influenza vaccination [facility] Start: 02-19-2023 DIABETES SCREEN DIABETES SCREEN [facility] Start: 02-19-2023 Diabetes Screening Diabetes Screening [facility] Start: 10-01-2022 Patient discharge [facility] Start: 12-18-2021 Influenza vaccination INFLUENZA (#1) [facility] Start: 01-20-2021 COLOGUARD (FIT-DNA) COLOGUARD (FIT-DNA) [facility] Start: 01-20-2021 Colonoscopy COLONOSCOPY [facility] Start: 01-20-2021 COLORECTAL CANCER SCREENING COLORECTAL CANCER SCREENING [facility] Start: 01-20-[address] COLONOGRAPHY [facility] Start: 01-20-2021 FECAL OCCULT BLOOD FECAL OCCULT BLOOD [facility] Start: 01-20-2021 Lipid panel Lipid Screening [facility] Start: 01-20-2021 LIPID SCREEN LIPID SCREEN [facility] Start: 01-20-2021 Screening for malignant neoplasm of colon [facility] Start: 01-20-2021 SIGMOIDOSCOPY SIGMOIDOSCOPY [facility] Start: 2016 Mammography MAMMOGRAM [facility] Start: 2016 Screening for malignant neoplasm of breast Mammogram Screening [facility] Start: 01-20-2006 HPV TESTING HPV TESTING [facility] Start: 01-20-1997 PAP TESTING PAP TESTING [facility] Start: 01-20-1997 Screening for malignant neoplasm of cervix Cervical Cancer Screening [facility] Start: 01-20-1995 Hepatitis B Vaccine (1 of 3 - 19+ 3-dose series) Hepatitis B Vaccine (1 of 3 - 19+ 3-dose series) [facility] Colonoscopy [facility] Patient referral [facility] Work Phone: Immunizations Immunization Date Immunization Notes Care Provider Bess haywardsonja 02-11-2021 influenza virus vaccine, unspecified formulation Anthony Beltre PARTITION MAKING MACHINE OPERATOR.MANAGER LABORATORY Work Phone: [facility] 02-24-2020 influenza, injectabl e, quadrivalent, preservative free José Lackey PARTITION MAKING MACHINE OPERATOR.MANAGER LABORATORY Work Phone: [facility] 01-15-2017 tetanus toxoid, redu lesly diphtheria toxoid, and acellular pertussis vaccine, adsorbed José Lackey PARTITION MAKING MACHINE OPERATOR.MANAGER LABORATORY Work Phone: [facility] Payers Date Payer Category Payer Self-pay [id number] 2023 Unknown MMO MMO [employer] PPO [id number] 2023-Present [phone] [address] [place] [address] PPO [id number] 2023 Unknown [id number] 2019 Unknown [employer] PPO OOS [id number] 2019-Present [phone] [address] [place] [address] PPO [id number] Private Health Insurance [id number] Unknown [facility] [id number] Unknown [id number] Social History Date Type Detail Facility Start: 05-21-2016 End: 01-31-2024 Tobacco smoking status NHIS Never smoked tobacco [facility] Start: 05-21-2016 End: 01-31-2024 Tobacco use and exposure Smokeless tobacco non-user [facility] Start: 11-04-2021 End: 01-31-2024 Alcohol intake Current drinker of alcohol (finding) [facility] Start: 03-26-2020 End: 11-04-2021 Alcohol intake [facility] Start: 1975 Sex Assigned At Not on file [facility] Start: 10-25-2021 End: 11-04-2021 Exposure to SARS-CoV-2 (event) Not sure [facility] Start: 1975 Sex Assigned At Female [facility] Start: 03-23-2019 End: 09-30-2022 Tobacco smoking status NHIS Unknown if ever smoked [facility] Start: 03-26-2020 End: 01-31-2024 Tobacco use panel [facility] National Score (1-100), lower number is lower risk Not on file [facility] NEGATED: Highlighted row [facility] Goals Date Patient Goal Desired Activity /State Mental Status Date Assessment Result Facility 10-01-2022 Cognitive function Awake;Alert;Appropriat e [facility] Work Phone: 10-01-2022 Cognitive function Arousable To Voice/Nam e [facility] Work Phone: Progress note 01-31-2024 Note Date & Type Note Facility 01-31-2024 Note HNO ID: [id number] Author: ANTHONY BELTRE APRN.MANAGER LABORATORY Service: ? Author Type: Nurse Practitioner Type: Progress Notes Filed: 01/31/2024 16:23 Note Text: Subjective HPI HPI Bonita Jensen is a 49 year old female who presents today for CC of st. This started st, sinus pressure, ear pain. Has tried 3 days ago. Symptoms are worsened by otc medication for relief. Risk factors sick exposures at home. Nonsmoker. .Patient presents with: Head Congestion: right side ear, tonsil and throat pain x 3 days No past medical history on file. No past surgical history on file. ALLERGIES Patient has no known allergies. MEDICATIONS medroxyPROGESTERone (DEPO-PROVERA) 150 mg/mL 150 mg. spironolactone (ALDACTONE) 100 mg tablet Take 1 tablet by mouth once daily (at the same time each day) with a full glass of water. bisacodyl (DULCOLAX, BISACODYL,) 10 mg supp 1 Suppository by RECTAL route once daily as needed. Ibuprofen 200 mg cap Take 4 capsules by mouth. fluticasone (FLONASE) 50 mcg/actuation nasal spray Use 2 Sprays in each nostril once daily. Rinse mouth after use. VENLAFAXINE HCL (EFFEXOR XR ORAL) Take by mouth. multivitamin tablet Take 1 tablet by mouth once daily. doxycycline hyclate 50 mg TbEC (Patient not taking: Reported on 01/31/2024) loratadine (CLARITIN) 10 mg tablet Take 1 tablet by mouth once daily. (Patient not taking: Reported on 01/31/2024) TESTOSTERONE AND ESTRADIOL CYP (DEPO-TESTADIOL INTRAMUSC.) Inject intramuscularly. (Patient not taking: Reported on 11/04/2021 ) FAMILY HISTORY Problem Relation Age of Onset Psychiatry Father Arthritis Father Diabetes Mother Arrythmias Mother Social History Tobacco Use Smoking status: Never Smokeless tobacco: Never Substance Use Topics Alcohol use: Yes Alcohol/week: 2.0 standard drinks of alcohol Types: 2 Glasses of Wine (5oz) per week Drug use: Never Review of Systems Constitutional: Negative for fever. HENT: Positive for congestion, ear pain and sore throat. Negative for nosebleeds. Respiratory: Positive for cough. Negative for shortness of breath and wheezing. Musculoskeletal: Negative for neck pain. Skin: Negative for itching and rash. Objective Blood pressure 144/88, pulse 92, temperature 36.6 ?C (97.8 ?F), resp. rate 16, weight 95 kg (209 lb 7 oz), SpO2 99%. Physical Exam Constitutional: General: She is not in acute distress. Appearance: She is not toxic-appearing or diaphoretic. HENT: Head: Normocephalic and atraumatic. Right Ear: Hearing, tympanic membrane, ear canal and external ear normal. Left Ear: Hearing, tympanic membrane, ear canal and external ear normal. Nose: Nose normal. Mouth/Throat: Lips: [place]. Mouth: Mucous membranes are moist. Pharynx: Uvula midline. Posterior oropharyngeal erythema present. No pharyngeal swelling, oropharyngeal exudate or uvula swelling. Eyes: General: Lids are normal. No scleral icterus. Right eye: No discharge. Left eye: No discharge. Conjunctiva/sclera: Conjunctivae normal. Pupils: Pupils are equal, round, and reactive to light. Neck: Trachea: Trachea normal. Cardiovascular: Rate and Rhythm: Normal rate and regular rhythm. Heart sounds: Normal heart sounds. Pulmonary: Effort: Pulmonary effort is normal. Breath sounds: Normal breath sounds. Musculoskeletal: Cervical back: Normal range of motion and neck supple. Lymphadenopathy: Cervical: No cervical adenopathy. Right cervical: No superficial cervical adenopathy. Left cervical: No superficial cervical adenopathy. Skin: Findings: No rash. Neurological: Mental Status: She is alert and oriented to person, place, and time. ASSESSMENT/PLAN: 1. Sinobronchitis - ICD9: 473.9, 490, ICD10: J32.9, J40 (primary diagnosis) Start prednisone today, hold atb. If s/s persist or worsen fill and take atb - Supportive care with plenty of fluids, rest, and analgesia prn. - Follow up in 3-5 days if symptoms persist or worsen. - AMOXICILLIN 875 MG-POTASSIUM CLAVULANATE 125 MG TABLET - PREDNISONE 20 MG TABLET 2. Sore throat - ICD9: 462, ICD10: J02.9 Negative, viral - STREP A MOLECULAR (POC) Anthony Beltre APRN.MANAGER LABORATORY [facility] History of Present illness Narrative 01-31-2024 Anthony Beltre APRN.KIRBY - 01/31/2024 4:02 PM EDT Note Date & Type Note Facility 01-31-2024 History of Presen t illness Narrative Subjective HPI HPI Bonita Jensen is a 49 year old female who presents today for CC of st. This started st, sinus pressure, ear pain. Has tried 3 days ago. Symptoms are worsened by otc medication for relief. Risk factors sick exposures at home. Nonsmoker. .Patient presents with: Head Congestion: right side ear, tonsil and throat pain x 3 days No past medical history on file. No past surgical history on file. ALLERGIES Patient has no known allergies. MEDICATIONS medroxyPROGESTERone (DEPO-PROVERA) 150 mg/mL 150 mg. spironolactone (ALDACTONE) 100 mg tablet Take 1 tablet by mouth once daily (at the same time each day) with a full glass of water. bisacodyl (DULCOLAX, BISACODYL,) 10 mg supp 1 Suppository by RECTAL route once daily as needed. Ibuprofen 200 mg cap Take 4 capsules by mouth. fluticasone (FLONASE) 50 mcg/actuation nasal spray Use 2 Sprays in each nostril once daily. Rinse mouth after use. VENLAFAXINE HCL (EFFEXOR XR ORAL) Take by mouth. multivitamin tablet Take 1 tablet by mouth once daily. doxycycline hyclate 50 mg TbEC (Patient not taking: Reported on 01/31/2024) loratadine (CLARITIN) 10 mg tablet Take 1 tablet by mouth once daily. (Patient not taking: Reported on 01/31/2024) TESTOSTERONE AND ESTRADIOL CYP (DEPO-TESTADIOL INTRAMUSC.) Inject intramuscularly. (Patient not taking: Reported on 11/04/2021 ) FAMILY HISTORY Problem Relation Age of Onset Psychiatry Father Arthritis Father Diabetes Mother Arrythmias Mother Social History Tobacco Use Smoking status: Never Smokeless tobacco: Never Substance Use Topics Alcohol use: Yes Alcohol/week: 2.0 standard drinks of alcohol Types: 2 Glasses of Wine (5oz) per week Drug use: Never Review of Systems Constitutional: Negative for fever. HENT: Positive for congestion, ear pain and sore throat. Negative for nosebleeds. Respiratory: Positive for cough. Negative for shortness of breath and wheezing. Musculoskeletal: Negative for neck pain. Skin: Negative for itching and rash. Objective Blood pressure 144/88, pulse 92, temperature 36.6 C (97.8 F), resp. rate 16, weight 95 kg (209 lb 7 oz), SpO2 99%. Physical Exam Constitutional: General: She is not in acute distress. Appearance: She is not toxic-appearing or diaphoretic. HENT: Head: Normocephalic and atraumatic. Right Ear: Hearing, tympanic membrane, ear canal and external ear normal. Left Ear: Hearing, tympanic membrane, ear canal and external ear normal. Nose: Nose normal. Mouth/Throat: Lips: [place]. Mouth: Mucous membranes are moist. Pharynx: Uvula midline. Posterior oropharyngeal erythema present. No pharyngeal swelling, oropharyngeal exudate or uvula swelling. Eyes: General: Lids are normal. No scleral icterus. Right eye: No discharge. Left eye: No discharge. Conjunctiva/sclera: Conjunctivae normal. Pupils: Pupils are equal, round, and reactive to light. Neck: Trachea: Trachea normal. Cardiovascular: Rate and Rhythm: Normal rate and regular rhythm. Heart sounds: Normal heart sounds. Pulmonary: Effort: Pulmonary effort is normal. Breath sounds: Normal breath sounds. Musculoskeletal: Cervical back: Normal range of motion and neck supple. Lymphadenopathy: Cervical: No cervical adenopathy. Right cervical: No superficial cervical adenopathy. Left cervical: No superficial cervical adenopathy. Skin: Findings: No rash. Neurological: Mental Status: She is alert and oriented to person, place, and time. ASSESSMENT/PLAN: 1. Sinobronchitis - ICD9: 473.9, 490, ICD10: J32.9, J40 (primary diagnosis) Start prednisone today, hold atb. If s/s persist or worsen fill and take atb - Supportive care with plenty of fluids, rest, and analgesia prn. - Follow up in 3-5 days if symptoms persist or worsen. - AMOXICILLIN 875 MG-POTASSIUM CLAVULANATE 125 MG TABLET - PREDNISONE 20 MG TABLET 2. Sore throat - ICD9: 462, ICD10: J02.9 Negative, viral - STREP A MOLECULAR (POC) Anthony Beltre APRN.MANAGER LABORATORY documented in this encounter [facility] History and physical note 10-01-2022 Note Date & Type Note Facility 10-01-2022 History and physi samantha note Note Date/Time October 01, 2022 9:10am [facility] Medical Records Department [address] [place] [id number] History & Physical Exam 10/01/22 0908 MR#: [id number] Acct: [id number] Name: BONITA JENSEN Rep #:[id number] : 1975 47 From: Vinny Friend DO PCP: Dr. Zena Mahoney, DO [place] [place] [address] HPI - General General Date of Admission: 10/01/22 Date of Service: 10/01/22 Chief Complaint: Screening colonoscopy HPI Narrative BONITA JENSEN, is a 47 F who presents today for screening colonoscopy. She has apast medical history of radiculopathy and somatic dysfunction of lumbar spine. She does not have any personal history of adenomatous polyps. She did have a colonoscopy. She denies any chest pain or shortness of breath. Overall she is in very good health. [facility] Medical History (Updated 09/30/22 @ 10:46 by Louann Mims) Alcohol use Allergies Anemia Anxiety Anxiety and depression Back problem Breast lump in female Depression Fibromyalgia Former smoker Gout History of steroid therapy Injury of head and neck Kidney stones Restless legs Wears glasses Home Medications [id number]-[id number]-boron 600 mg-200 unit-40 mg-7.5 mg tablet 1 tab PO DAILY 03/08/19 [History Last Taken Unknown] fluticasone propionate 50 mcg/actuation nasal spray,suspension 1 spray intranasal DAILY 03/08/19 [History Last Taken Unknown] doxycycline hyclate 100 mg capsule 100 mg PO DAILY 07/21/22 [History Last Taken Unknown] ropinirole 0.5 mg tablet 1 mg PO QHS 07/21/22 [History Last Taken Unknown] spironolactone 100 mg tablet 100 mg PO QAM 07/21/22 [History Last Taken Unknown] venlafaxine 150 mg capsule,extended release 24 hr (Effexor XR) 150 mg PO DAILY 08/04/22 [History Last Taken Unknown] metronidazole 0.75 % topical cream 1 applic topical DAILY 09/30/22 [History Last Taken Unknown] prednisone 20 mg tablet 20 mg PO BID 09/30/22 [History Last Taken Unknown] Allergy/AdvReac Type Severity Reaction Status Date / Time No Known Allergies Allergy Verified 10/01/22 08:43 Family History Father Emotional depression Anxiety History of psychiatric care Mother Diabetes High cholesterol Sister History of psychiatric care Grandmother Breast cancer Grandmother Breast cancer Other Hypertension Thyroid disorder Surgical History (Updated 09/30/22 @ 10:46 by Louann Mims) History of oral surgery Hx of breast reduction, elective Social History Smoking Status: Former smoker alcohol intake: current alcohol intake frequency: holidays/special occasions only details: 2-4 DRINKS PER MONTH substance use type: does not use what type of physical activity do you participate in: running and yoga additional social history: DOES NOT USE ASPIRIN DOES USE IBUPROFEN NEEDED ROS Review of Systems ROS Unobtainable: other Constitutional Constitutional: Denies fatigue, fever(s), poor appetite, weight gain or weight loss ENT HEENT: Denies mouth lesions Cardiovascular Cardiovascular: Denies abdominal bloating, abdominal edema or abdominal pain Respiratory/Chest Respiratory/Chest: Denies change in mental status, change in phlegm color, chestcongestion or chest tightness Gastrointestinal Gastrointestinal: Denies belching, bloating, change in bowel habits, change in stool character, chewing difficulty, coffee ground emesis, constipation, cramping, diarrhea, dyspepsia, dysphagia, early satiety, excessive flatus, fecalincontinence, heartburn, hematemesis, hematochezia, hemorrhoids, loose stools, melena, nausea, odynophagia, rectal bleeding, tenesmus, vomiting or weight changes Genitourinary Genitourinary: Denies abdominal discomfort, burning urination or itching Musculoskeletal Musculoskeletal: Reports as per HPI; Denies muscle weakness or myalgias Integumentary Integumentary: Denies jaundice Neurologic Neurologic: Denies lack of coordination or weakness Psychiatric Psychiatric: Denies confusion, depression, memory loss, mood swings, paranoia orsuicidal ideation Endocrine Endocrinology: Denies systems reviewed and no addt'l complaints, except as documented Hematologic/Lymphatic Hematologic/Lymphatic: Denies anemia, easy bleeding, easy bruising or lymphadenopathy Allergic/Immunologic Allergic/Immunologic: Denies systems reviewed and no addt'l complaints, except as documented Vital Signs Vital Signs Vital Signs: 10/01/22 08:48 10/01/22 08:48 Temperature 98.3 F Temperature Source Temporal Pulse Rate 94 Respiratory Rate 16 Respiratory Pattern Normal Blood Pressure 122/82 H Blood Pressure Mean 95 Blood Pressure Source Monitor Blood Pressure Position Sitting Blood Pressure Location Left Arm Pulse Ox 99 Oxygen Delivery Method Room Air Weight Weight: 196 lb 3.382 oz Body Mass Index (BMI) 30.7 Physical Exam Const alert General Appearance: cooperative Orientation / Consciousness: oriented to person HEENT hearing grossly normal bilaterally Head and Scalp: normal to inspection Face and Sinus: face symmetric Nose: external nose normal Mouth: oral and palatal mucosa normal Eyes conjunctivae normal General Eye: normal appearance of both eyes Neck full ROM General: normal visual inspection Lymph Lymphatic: no lymphadenopathy noted Chest inspection of chest normal and palpation of chest normal Chest: symmetrical chest wall rise Resp normal respiratory effort Effort and Inspection: able to speak in complete sentences Cardio regular rate GI non-distended Percussion: normal to percussion Rectal Exam: deferred Neuro Speech: speech normal Gait (Neuro): normal gait Results Lab / Micro Data Labs: Laboratory Results - last 24 hr 10/01/22 08:35: Urine Test Negative Assessment & Plan Assessment/Plan (1) Encounter for screening for malignant neoplasm of colon: PLAN: She was explained alternatives, risk, benefits including not withstanding bleeding, infection, sepsis, perforation, need for emergent urgent . She have an ASA of 2. 10/01/22 0910 <Electronically signed by Vinny Hillman DO> Cosigner Signature (if applicable): CC: Dr. Zena Mahoney, ; Vinny Hillman DO~ Signed [facility] Work Phone: Procedure note 10-01-2022 Note Date & Type Note Facility 10-01-2022 Procedure note [facility] Procedure note 10-01-2022 Note Date & Type Note Facility 10-01-2022 Procedure note [facility] History of Present illness Narrative 11-04-2021 José Lackey APRN.MANAGER LABORATORY - 11/04/2021 4:23 PM EDT Note Date & Type Note Facility 11-04-2021 History of Presen t illness Narrative Subjective HPI Nontoxic female presents urgent care chief complaint sinus pressure and drainage. Duration of symptom 1 week. Associated symptoms sinus pressure drainage transient sinus headache. Patient states sinus pressure has worsened over the last few days. Has been using OTC medications this does not help. History of sinus infection in the past. Denies any known sick contacts. Denies any fever body aches chills cough chest pain shortness of breath change in bowel or bladder habits. Past medical history prescription medication use allergies reviewed. Denies chance of is not breast-feeding. .Patient presents with: Sinus Problem: sinus pressure, drainage x 1 week History reviewed. No pertinent past medical history. History reviewed. No pertinent surgical history. ALLERGIES Patient has no known allergies. MEDICATIONS bisacodyl (DULCOLAX, BISACODYL,) 10 mg supp 1 Suppository by RECTAL route once daily as needed. Ibuprofen 200 mg cap Take 4 capsules by mouth. doxycycline hyclate 50 mg TbEC fluticasone (FLONASE) 50 mcg/actuation nasal spray Use 2 Sprays in each nostril once daily. Rinse mouth after use. loratadine (CLARITIN) 10 mg tablet Take 1 tablet by mouth once daily. VENLAFAXINE HCL (EFFEXOR XR ORAL) Take by mouth. multivitamin tablet Take 1 tablet by mouth once daily. TESTOSTERONE AND ESTRADIOL CYP (DEPO-TESTADIOL INTRAMUSC.) Inject intramuscularly. FAMILY HISTORY Problem Relation Age of Onset Psychiatry Father Arthritis Father Diabetes Mother Arrythmias Mother Social History Tobacco Use Smoking status: Never Smoker Smokeless tobacco: Never Used Substance Use Topics Alcohol use: Yes Alcohol/week: 2.0 standard drinks Types: 2 Glasses of Wine (5oz) per week Drug use: Never BP 128/82 Pulse 90 Temp 37.1 C (98.8 F) Resp 16 Wt 94.3 kg (208 lb) SpO2 96% BMI 32.58 kg/m Review of Systems Constitutional: Negative for chills, fever and malaise/fatigue. HENT: Positive for congestion and sinus pain. Negative for ear discharge, ear pain and sore throat. Eyes: Negative for blurred vision, pain, discharge and redness. Respiratory: Negative for cough, hemoptysis, sputum production, shortness of breath, wheezing and stridor. Cardiovascular: Negative for chest pain. Gastrointestinal: Negative for abdominal pain, diarrhea, nausea and vomiting. Musculoskeletal: Negative for myalgias. Skin: Negative for itching and rash. Neurological: Negative for dizziness and headaches. Objective Physical Exam Vitals and nursing note reviewed. Constitutional: General: She is not in acute distress. Appearance: She is not diaphoretic. HENT: Head: Normocephalic and atraumatic. Jaw: No trismus, tenderness, swelling or pain on movement. Right Ear: Hearing, tympanic membrane, ear canal and external ear normal. No decreased hearing noted. No drainage, swelling or tenderness. No mastoid tenderness. Tympanic membrane is not perforated, erythematous or bulging. Left Ear: Hearing, tympanic membrane, ear canal and external ear normal. No decreased hearing noted. No drainage, swelling or tenderness. No mastoid tenderness. Tympanic membrane is not perforated, erythematous or bulging. Nose: Right Sinus: Maxillary sinus tenderness present. Left Sinus: Maxillary sinus tenderness present. Mouth/Throat: Lips: [place]. Mouth: Mucous membranes are moist. Pharynx: Oropharynx is clear. Uvula midline. No pharyngeal swelling, oropharyngeal exudate, posterior oropharyngeal erythema or uvula swelling. Eyes: General: Right eye: No discharge. Left eye: No discharge. Conjunctiva/sclera: Conjunctivae normal. Pupils: Pupils are equal, round, and reactive to light. Cardiovascular: Rate and Rhythm: Normal rate and regular rhythm. Heart sounds: Normal heart sounds. Pulmonary: Effort: Pulmonary effort is normal. No tachypnea, accessory muscle usage or respiratory distress. Breath sounds: Normal breath sounds. No stridor. No wheezing, rhonchi or rales. Chest: Chest wall: No tenderness. Abdominal: Palpations: Abdomen is soft. Tenderness: There is no abdominal tenderness. Musculoskeletal: General: No tenderness. Normal range of motion. Cervical back: Normal range of motion and neck supple. No rigidity or tenderness. Lymphadenopathy: Head: Right side of head: No submental, submandibular, tonsillar, preauricular, posterior auricular or occipital adenopathy. Left side of head: No submental, submandibular, tonsillar, preauricular, posterior auricular or occipital adenopathy. Cervical: No cervical adenopathy. Right cervical: No superficial or posterior cervical adenopathy. Left cervical: No superficial or posterior cervical adenopathy. Skin: General: Skin is warm and dry. Findings: No rash. Neurological: Mental Status: She is alert and oriented to person, place, and time. ASSESSMENT/PLAN: 1. Bacterial sinusitis - ICD9: 473.9, 041.9, ICD10: J32.9, B96.89 Patient diagnosed with maxillary sinusitis. Will be placed on Augmentin. Has tolerated this antibiotic in the past. Patient was educated on supportive therapies. Patient will follow up with primary care provider as needed. Patient was instructed to immediately proceed to emergency room for any new, worsening, or symptoms lasting longer than anticipated. The patient's clinical presentation is otherwise unremarkable at this time. Based on exam and clinical finding, the patient is stable for discharge. Plan of care was discussed with patient. Patient verbalizes understanding and agrees to plan of care. This note was generated using [employer] software. It may contain errors in wording, punctuation, or spelling. oJsé Lackey [email or web address] documented in this encounter [facility] Evaluation note Note Date & Type Note Facility Evaluation note Diagnosis Bacterial sinusitis- Primary Unspecified sinusitis (chronic) documented in this encounter [facility] Evaluation note Note Date & Type Note Facility Evaluation note No assessment information availa [facility] Work Phone: Evaluation note Note Date & Type Note Facility Evaluation note Diagnosis Onset Date Chronic neck pain acute Segmental and somatic dysfun ction of cervical region acute Segmental and somatic dysfun ction of lumbar region acute Segmental and somatic dysfun ction of thoracic region acute Chronic neck pain acute Segmental and somatic dysfun ction of cervical region acute Segmental and somatic dysfun ction of lumbar region acute Segmental and somatic dysfun ction of thoracic region acute Encounter for screening for malignant neoplasm of colon [facility] Work Phone: Evaluation note Note Date & Type Note Facility Evaluation note Diagnosis Pre-operative examination- Primary Preoperative examination, unspecified Macromastia Hypertrophy of breast Environmental allergies Other allergy, other than to medicinal agents Anxiety and depression Dysthymic disorder Class 1 obesity due to excess calories without serious comorbidity with body mass index (BMI) of 31.0 to 31.9 in adult Sinobronchitis- Primary Unspecified sinusitis (chronic) Sore throat Acute pharyngitis documented in this encounter [facility] Advance Directives No Advanced Directives Records FoundDocuments on File Type Date Recorded 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 Advance Directive(s) 02/20/2020 10:05 AM Advance Directive Response Recorded Date/ Time Living Will No February 01 7:41am Power of Esol Teacher No February 01, 2019 7:41am Advance Directive Response Recorded Date/ Time Living Will No September 30, 2022 10:46am Power of Esol Teacher No September 30 10:46am Family History No Family History Records Found Relationship Condition Age at Onset Recorded Date/T carmen Not Specified Hypertension Unknown Disorder of thyroid Unknown father Symptoms of depression Unknown Anxiety Unknown History of psychiatric care Unknown mother Diabetes mellitus Unknown High blood cholesterol Unknown sister History of psychiatric care Unknown grandmother Malignant neoplasm of breast Unknown Chief Complaint and Reason for Visit Chief Complaint Amb Documentation BACK PAIN Back pain Reason for Visit Chronic neck pain Segmental and somatic dysfunction of cervical region Segmental and somatic dysfunction of lumbar region Segmental and somatic dysfunction of thoracic region Chronic neck pain Segmental and somatic dysfunction of cervical region Segmental and somatic dysfunction of lumbar region Segmental and somatic dysfunction of thoracic region Encounter for screening for malignant neoplasm of colon Summary Purpose Additional Source Comments Source Comments (unrecognize d section and content) In the event this informatio n is protected by the Federal Confidentiality of Alcohol and Drug Abuse Patient Records regulations: The Federal rules restrict any use of the information to criminally investigate or prosecute any alcohol or drug abuse patient[facility] event this information is protected by the Federal Confidentiality of Alcohol and Drug Abuse Patient Records regulations: The Federal rules restrict any use of the information to criminally investigate or prosecute any alcohol or drug abuse patient.[facility] Reason for Visit (unrecogniz ed section and content) Reason Comments Sinus Problem sinus pressure, drai nage x 1 week Reason Comments Head Congestion right side ear, tons il and throat pain x 3 days Care Teams (unrecognized sec tion and content) 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 Znea Mahoney DO Family Provider Active Dr. Zena Mahoney DO Primary Care Provider Active Team Status: Inactive Member Role Status Dates Dr. Zena Mahoney DO Primary Care Provider, Attendin g Provider Active Team Status: Inactive Member Role Status Dates Dr. Zena Mahoney DO Primary Care Provider, Referrin g Provider Active Dr. Jaymie Portillo [place] Attending Provider Active Team Status: Active Member Role Status Dates Dr. Zena Mahoney DO Primary Care Provider Active Faustina Beltre Attending Provider Active Team Status: Active Member Role Status Dates Dr. Zena Mahoney DO Primary Care Provider, Referrin g Provider Active Dr. Vinny Hillman , Attending Provider, Other Prov ider Active Team Status: Inactive Member Role Status Dates Dr. Zena Mahoney DO Primary Care Provider, Referrin g Provider Active Dr. 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 DATE CREATED AUTHOR 'S BERTIN ATSUDHA 02/28/2025 [facility] FOR RECORDS PERTAINING TO PATIENTS WHO ARE OR HAVE BEEN ENROLLED IN A CHEMICAL DEPENDENCY/SUBSTANCEABUSE PROGRAM, SOME INFORMATION MAY BE OMITTED. This clinical summary was aggregated from multiple sources. Caution should be exercised in using it in the provision of clinical care. This summary normalizes information from multiple sources, and as a consequence, information in this document may materially change the coding, format and clinical context of patient data. In addition, data may be omitted in some cases. CLINICAL DECISIONS SHOULD BE BASED ON THE PRIMARY CLINICAL RECORDS. [facility]. provides no warranty or guarantee of the accuracy or completeness of information in this document.
== END | disposition home or self-care (01) ==
LOC: OPBI 07:22
PROVIDERS: PCP Family Medicine; Referring Provider Family Medicine; Visit Provider Family Medicine
DX: Z12.31 Encounter for screening mammogram for malignant neoplasm of breast (principal)
CPT/HCPCS: 77063; 77067

== ENCOUNTER → 2025-04-02 | Outpatient (CLI) | payer OTHER, SELFPAY ==
[2025-04-02 12:22] LABS: Hematocrit 43.2 % (37-47); Hemoglobin 14.4 g/dL (12.0-15.0); Immature Granulocytes Count 0.030 X10^3/uL (0.0-0.0); Mean Corp Hgb Conc 33.3 g/dL (32-36); Mean Corpuscular Volume 91.3 fL (81-99); Mean Platelet Vol. 9.3 fl (6.2-12.0); NRBC Flagged by Analyzer 0 % (0-5); Platelet Count 275 K/mm3 (150-450); RBC Distribution Width CV 11.8 % (11.6-14.6); RBC Distribution Width SD 39.6 fl (35.1-43.9); Red Blood Count 4.73 M/mm3 (4.2-5.4); White Blood Count 6.3 K/mm3 (4.4-11.0)
[2025-04-02 12:44] LABS: AST(SGOT) 18 U/L (<=31); Alanine Aminotransfer ALT/SGPT 19 U/L (<=34); Albumin, Serum 4.2 g/dL (3.5-5.0); Alkaline Phosphatase 44 U/L (35-104); Anion Gap 10 (5-15); BUN 12 mg/dL (4-19); BUN/Creat Ratio 14.4 RATIO (10-20); Calcium,Total 9.9 mg/dL (7.6-11.0); Carbon Dioxide 23.5 mmol/L (21.0-32.0); Chloride 106 mmol/L (98-108); Cholesterol 222 mg/dL (<=200); Globulin 2.7 g/dL (2.2-4.2); Glucose 99 mg/dL (70-99); Low Density Lipoprotein Calc. 145 mg/dL; Potassium 4.3 mmol/L (3.3-5.1); Triglycerides 129 mg/dL; Very Low Density Lipoprotein 26 mg/dL (5-40); cholesterol:hdl ratio screen 4.15
== END | disposition home or self-care (01) ==
LOC: BFHLAB 09:48
PROVIDERS: PCP Family Medicine; Visit Provider Family Medicine
DX: Z00.00 Encounter for general adult medical examination without abnormal findings (principal)
CPT/HCPCS: 36415; 80053; 80061; 84443; 85025